=== PATIENT | female | born 1955 | race Caucasian/White ===

== ENCOUNTER → 2016-09-28 | Outpatient (CLI) | payer BC ==
[2016-09-28 10:00] LABS: Appearance,Urine Cloudy (Clear); Bacteria,Urine Moderate /hpf; Bilirubin,Urine Negative (Negative); Glucose,Urine (UA) Negative (Negative); Ketones,Urine Negative (Negative); Leukocyte Esterase,Urine Moderate (Negative); Mucus,Urine Few /hpf; Nitrite,Urine Negative (Negative); Particle Count 11865; Protein,Urine 1+ (Negative); RBC,Urine 3 /hpf (0-5); Specific Gravity,Urine 1.016 (1.001-1.035); Squamous Epithelial Cell,Urine 23 /hpf (0-4); UA Billing (MACRO vs. MICRO) MICRO; WBC,Urine 8 /hpf (0-5)
[2016-09-28 10:03] LABS: CH 28.7; CHCM 31.1; HCT 49.2 % (34.0-46.0); HDW 3.16; Hypochromasia Moderate; MCH 28.3 pg (25.0-35.0); MCHC 30.5 g/dL (31.0-37.0); MCV 92.7 fL (80.0-100.0); Mean Platelet Volume 7.4; RBC 5.31 m/uL (3.80-5.40); RDW 15.7 % (11.5-15.5); WBC 10.1 k/uL (3.8-10.6)
[2016-09-28 12:33] LABS: Blood Urea Nitrogen 18 mg/dL (7-17); Calcium 8.8 mg/dL (8.4-10.2); Chloride 97 mmol/L (98-107); Glucose 103 mg/dL (74-99); Iron 80 ug/dL (37-170); Magnesium 1.9 mg/dL (1.6-2.3); Non-African American GFR(MDRD) 56 (>60 ml/min/1.73 sqM); Phosphorous 4.2 mg/dL (2.5-4.5); Potassium 5.1 mmol/L (3.5-5.1); Sodium 145 mmol/L (137-145); Uric Acid 5.1 mg/dL (3.7-7.4)
[2016-09-28 12:42] LABS: % Iron Saturation 27.1 % (20-50); Total Iron Binding Capacity 295 ug/dL (265-497)
[2016-09-28 12:53] LABS: Anion Gap 11 mmol/L; Carbon Dioxide 37 mmol/L (22-30)
== END | disposition home or self-care (01) ==
LOC: LABWHC1 09:23
PROVIDERS: ATTEND Nurse Practitioner Family
DX: N18.3 Chronic kidney disease, stage 3 (moderate) (principal); D50.9 Iron deficiency anemia, unspecified; N25.81 Secondary hyperparathyroidism of renal origin; D64.9 Anemia, unspecified; E83.39 Other disorders of phosphorus metabolism; M10.9 Gout, unspecified; N39.0 Urinary tract infection, site not specified
CPT/HCPCS: 36415; 80048; 81001; 82043; 82306; 82728; 83540; 83550; 83735; 83970; 84100; 84550; 85027

== ENCOUNTER → 2016-11-23 | Outpatient (CLI) | payer BC ==
--- NOTE | 2016-11-23 15:30 | BD ---
EXAMINATION TYPE: MG DEXA axial skeleton. DATE OF EXAM: 11/23/2016 1:24 PM COMPARISON: August 21, 2014 DEXA bone scan. CLINICAL HISTORY: Postmenopausal female without HRT Height: 5 FT 1 IN Weight: 327 FRAX RISK QUESTIONS: Alcohol (3 or more units per day): SELDOM Family History (Parent hip fracture): NO Glucocorticoids (More than 3mos): NO (Ex: prednisone, prednisolone, methylprednisolone, dexamethasone, and hydrocortisone). History of Fracture in Adulthood: YES Secondary Osteoporosis: 1. Type 1 Diabetes: NO 2. Hyperthyroidism: NO 3. Menopause before 45: NO 4. Malnutrition: NO 5. Chronic liver disease: NO Rheumatoid Arthritis: NO Current Tobacco Use: NO RISK FACTORS HISTORY OF: Surgery to Spine/Hip(right/left)/Wrist (right/left): LT HIP REPLACED When: 2015 Other Fractures since Age 48: RT FOOT When: 2017 Smoke tobacco: JUST STOPPED ONE MONTH AGO HAD SMOKED FOR 30 YEARS Drink Alcohol: SELDOM Postmenopausal woman: AGE 46 MEDICATIONS: Thyroid Medications: Which medication: SYNTHROID How Lon YEARS Osteoporosis Medications: Which medication: How Long: Additional Medications: SYNTHROID, SPIRONLACTONE,FERROUS SULFATE,VIT D2, CALCITRIOL, HYDROCODONE,ACET AMINOPH,AMLODIPINE BESYLATE Additional History: EXAM MEASUREMENTS: Bone mineral densitometry was performed using the [employer] System. Bone mineral density as measured about the Lumbar spine is: ----- L1-L4(G/cm2): 1.058 T Score Values are as follows: ----- L2: -0.3 ----- L3: -1.3 ----- L4: -1.0 ----- L1-L4: -1.0 Bone mineral density has: Decreased -6.4% since study of: 2013 Bone mineral density about the R hip (g/cm2): 0.782 T Score values are as follows: -----R Neck: -1.8 -----R Intertrochanter: 0.713 Bone mineral density has: Decreased -9.5% since study of: 2013 IMPRESSION: Osteopenia (T Score between -2.5 and -1 as noted by T score values in the right hip and low back lonny ins present. Bone density is decreased from prior. There remains slightly increased risk of fracture and the patient may be considered for treatment. Re-Screen 1-2 years. NOTE: T-SCORE=SD OF THE YOUNG ADULT MEAN.
--- NOTE | 2016-11-24 08:29 | MM ---
Reason for exam: screening (asymptomatic). Last mammogram was performed 1 year ago. History: Patient is postmenopausal. Family history of breast cancer in maternal grandmother at age 85. Physical Findings: A clinical breast exam by your physician is recommended on an annual basis and results should be correlated with mammographic findings. MG Screening Mammo w CAD Bilateral CC and MLO view(s) were taken. Prior study comparison: November 09, 2015, right breast MG 3d work up w/cad RT. November 01, 2015, bilateral MG screening mammo w CAD. The breast tissue is almost entirely fat. No significant changes when compared with prior studies. ASSESSMENT: Benign, BI-RAD 2 RECOMMENDATION: Routine screening mammogram of both breasts in 1 year.
== END | disposition home or self-care (01) ==
LOC: RADMAMWWP 12:32
PROVIDERS: ATTEND Family Medicine
DX: Z12.31 Encounter for screening mammogram for malignant neoplasm of breast (principal); Z78.0 Asymptomatic menopausal state; M85.89 Other specified disorders of bone density and structure, multiple sites
CPT/HCPCS: 77080; G0202

== ENCOUNTER → 2017-03-23 | Outpatient (CLI) | payer MEDICARE ==
[2017-03-23 10:09] LABS: CH 30.2; CHCM 33.5; HCT 39.3 % (34.0-46.0); HDW 2.88; HGB 13.1 gm/dL (11.4-16.0); MCH 30.1 pg (25.0-35.0); MCHC 33.2 g/dL (31.0-37.0); MCV 90.6 fL (80.0-100.0); Mean Platelet Volume 8.1; RBC 4.33 m/uL (3.80-5.40); RDW 15.1 % (11.5-15.5); WBC 7.5 k/uL (3.8-10.6)
[2017-03-23 10:28] LABS: Appearance,Urine Cloudy (Clear); Bilirubin,Urine Negative (Negative); Glucose,Urine (UA) Negative (Negative); Ketones,Urine Negative (Negative); Leukocyte Esterase,Urine Negative (Negative); Mucus,Urine Rare /hpf; Nitrite,Urine Negative (Negative); PH, Urine 5.5 (5.0-8.0); Particle Count 8023; Protein,Urine Trace (Negative); RBC,Urine 1 /hpf (0-5); Squamous Epithelial Cell,Urine 30 /hpf (0-4); UA Billing (MACRO vs. MICRO) MICRO; Urobilinogen,Urine <2.0 mg/dL (<2.0); WBC,Urine 1 /hpf (0-5)
[2017-03-23 11:06] LABS: Calcium 9.5 mg/dL (8.4-10.2); Magnesium 2.1 mg/dL (1.6-2.3); Phosphorous 4.5 mg/dL (2.5-4.5); Potassium 4.9 mmol/L (3.5-5.1); Uric Acid 6.9 mg/dL (3.7-7.4)
[2017-03-23 11:15] LABS: % Iron Saturation 28.8 % (20-50)
[2017-03-23 17:02] LABS: Urine Creatinine 284.4 mg/dL
== END | disposition home or self-care (01) ==
LOC: LABWHC1 09:42
PROVIDERS: ATTEND Nurse Practitioner Family
DX: M10.9 Gout, unspecified (principal); N39.0 Urinary tract infection, site not specified; N18.3 Chronic kidney disease, stage 3 (moderate); R80.9 Proteinuria, unspecified; N25.81 Secondary hyperparathyroidism of renal origin; D50.9 Iron deficiency anemia, unspecified
CPT/HCPCS: 36415; 80048; 81001; 82043; 82306; 82570; 82728; 83540; 83550; 83735; 83970; 84100; 84550; 85027

== ENCOUNTER → 2017-04-11 | Outpatient (CLI) | payer MEDICARE ==
--- NOTE | 2017-04-11 11:53 | US ---
EXAMINATION TYPE: US kidneys/renal and bladder DATE OF EXAM: 04/11/2017 COMPARISON: 01/06/2015 CLINICAL HISTORY: 61-year-old female N18.3 Chronic Kidney Disease. TECHNIQUE: Multiple sonographic images of the kidneys and bladder were obtained. FINDINGS: KILN CLEANER NOTES: Gross morbid obesity, study very limited. Right Kidney: 12.7 x 5.8 x 5.8 cm. There is limited visualization of the right kidney. Possible lesi on measuring 4.3 x 4.5 x 4.1 cm. Previously at the lower pole, a 2.4 x 2.5 cm lesion was seen. No ev ident hydronephrosis. By ultrasound, the left renal fossa appears clear. Partial distention of the bladder limits its evaluation. Left Kidney: Left nephrectomy IMPRESSION: 1. Possible enlarging lesion or cyst within the right kidney measuring 4.5 cm versus 2.5 cm, previous ly. There are technical limitations of the exam causing suboptimal visualization of the kidney. Consi dawood CT or MRI with renal mass protocol to further evaluate. 2. No hydronephrosis on the right. 3. By ultrasound, the left renal fossa appears clear.
== END | disposition home or self-care (01) ==
LOC: RADUSWWP 09:39
PROVIDERS: ATTEND Internal Medicine Nephrology
DX: N18.3 Chronic kidney disease, stage 3 (moderate) (principal)
CPT/HCPCS: 76770

== ENCOUNTER → 2017-04-20 | Outpatient (CLI) | payer MEDICARE ==
--- NOTE | 2017-04-20 09:59 | CT ---
EXAMINATION TYPE: CT abdomen pelvis wo con DATE OF EXAM: 04/20/2017 COMPARISON: NONE INDICATION: Renal Mass of unknown nature DLP: 1085 mGycm, Automated exposure control for dose reduction was used. CONTRAST: 0 mL of Omnipaque 300. Study performed without Oral Contrast TECHNIQUE: Axial images were obtained from above the diaphragm to the pubic rami in the axial plane a t 5 mm thick sections. Reconstructed images are reviewed on the computer in the coronal plane. FINDINGS: Limited CT sections are obtained the lung bases. The lung bases are clear. CT ABDOMEN: Liver: Normal Spleen: Normal Pancreas: Normal Adrenal glands: The adrenal glands are normal. Gallbladder: Gallstones are present. Kidneys: Left kidney is surgically absent. Noncontrast imaging through the right kidney appears ravi l without masses cysts or hydronephrosis. Some mild rotation is evident. Right renal collecting syste m is nondilated. The ureter follows a somewhat midline course towards the urinary bladder. No suspici ous renal stones are identified. No hydroureter is evident. Aorta: Vascular calcification is within the aorta. Inferior vena cava: Normal. CT PELVIS: Lower pelvis is limited due to beam hardening artifact from left hip prosthesis. Loops of bowel within the abdomen and pelvis are normal. Appendix: Not identified. Urinary bladder: Normal. Genitourinary structures: Uterus and adnexa are within the normal position. Calcified lower uterine s egment calcified fibroid is likely present. Osseous structures: No suspicious lytic or sclerotic lesions. Sacroiliac joint degenerative changes a re present. Degenerative disc changes are present L5-S1. Spondylolysis of L5 is evident. IMPRESSIONS: 1. No suspicious renal mass or ureteral calcification is evident. 2. Spondylolysis L5. 3. Cholelithiasis.
== END ==
LOC: RADCTMAIN 08:21
PROVIDERS: ATTEND Internal Medicine Nephrology
DX: K80.20 Calculus of gallbladder without cholecystitis without obstruction (principal)
CPT/HCPCS: 74176

== ENCOUNTER → 2017-11-22 | Outpatient (CLI) | payer MEDICARE ==
[2017-11-22 09:18] LABS: HCT 38.8 % (34.0-46.0); HGB 12.7 gm/dL (11.4-16.0); MCH 28.5 pg (25.0-35.0); MCHC 32.6 g/dL (31.0-37.0); MCV 87.5 fL (80.0-100.0); Mean Platelet Volume 7.4; Platelet Count 302 k/uL (150-450); RBC 4.44 m/uL (3.80-5.40); RDW 14.2 % (11.5-15.5); WBC 9.7 k/uL (3.8-10.6)
[2017-11-22 09:21] LABS: Appearance,Urine Cloudy (Clear); Bacteria,Urine Occasional /hpf; Bilirubin,Urine Negative (Negative); Blood,Urine Negative (Negative); Color,Urine Yellow; Glucose,Urine (UA) Negative (Negative); Ketones,Urine Negative (Negative); Leukocyte Esterase,Urine Negative (Negative); Mucus,Urine Rare /hpf; Nitrite,Urine Negative (Negative); PH, Urine 5.5 (5.0-8.0); Protein,Urine Negative (Negative); RBC,Urine 1 /hpf (0-5); Specific Gravity,Urine 1.019 (1.001-1.035); Squamous Epithelial Cell,Urine 13 /hpf (0-4); Urobilinogen,Urine <2.0 mg/dL (<2.0); WBC,Urine 3 /hpf (0-5)
[2017-11-22 09:35] LABS: Calcium 9.5 mg/dL (8.4-10.2); Magnesium 1.9 mg/dL (1.6-2.3); Phosphorus 4.7 mg/dL (2.5-4.5); Potassium 4.9 mmol/L (3.5-5.1); Total Bilirubin 0.4 mg/dL (0.2-1.3); Total Protein 6.6 g/dL (6.3-8.2); Uric Acid 5.9 mg/dL (3.7-7.4)
[2017-11-22 09:47] LABS: T4, Free (Free Thyroxine) 1.23 ng/dL (0.78-2.19)
[2017-11-22 16:55] LABS: Parathyroid Hormone Intact 94.4 pg/mL (14.0-72.0)
[2017-11-22 17:38] LABS: Iron Saturation 22.01 (12.00-45.00)
[2017-11-22 17:47] LABS: Vitamin D 25 Hydroxy 35.6 ng/mL (30.0-100.0)
== END | disposition home or self-care (01) ==
LOC: LABWHC1 08:08
PROVIDERS: ATTEND Nurse Practitioner Family
DX: N39.0 Urinary tract infection, site not specified (principal); N18.3 Chronic kidney disease, stage 3 (moderate); D50.9 Iron deficiency anemia, unspecified; N25.81 Secondary hyperparathyroidism of renal origin; M10.9 Gout, unspecified; R80.9 Proteinuria, unspecified
CPT/HCPCS: 36415; 80053; 80061; 81001; 82043; 82306; 82570; 82728; 83036; 83540; 83550; 83735; 83970; 84100; 84439; 84443; 84550; 85027

== ENCOUNTER → 2017-12-06 | Outpatient (CLI) | payer MEDICARE ==
--- NOTE | 2017-12-06 13:43 | US ---
EXAMINATION TYPE: US kidneys/renal and bladder DATE OF EXAM: 12/06/2017 COMPARISON: Ultrasound 04/11/[address] 04/20/2017 CLINICAL HISTORY: 62-year-old female CKD stage 3 N18.3. LEFT kidney surgically absent Technique: Multiple sonographic images of the kidneys and bladder are obtained. FINDINGS: Right Kidney: 14.1 x 5.7 x 7.5 cm without hydronephrosis. There is a partially exophytic round hypoe choic lesion with internal vascularity measuring 3.8 x 3.7 cm in the mid right kidney. On ultrasound of 04/11/2017, this measured 4.5 cm and on 01/06/2015, it measured 2.5 cm. Left Kidney: Surgically absent Bladder: No gross abnormality of the bladder. Bilateral Jets seen: right jet seen Incidental echogenic appearance to the liver suggests fatty infiltration. IMPRESSION: 1. Lesion measuring 3.8 cm in the right kidney seems to have relatively indolent behavior. However, i ts solid appearance on the current exam and associated vascularity makes a neoplasm such as RCC diffi cult to entirely exclude. The patient's 04/20/2017 CT is reviewed and we note limitations due to nonco ntrast technique. A right kidney lesion is confirmed on that study measuring approximately 4.3 cm. F or a exhibit display representative image, refer to series [address] Recommend kidney MRI with contrast for more definitive soft tissue characterization. 2. Left renal fossa remains clear. 3. Hepatic steatosis.
== END | disposition home or self-care (01) ==
LOC: RADUSWWP 10:04
PROVIDERS: ATTEND Internal Medicine Nephrology
DX: N28.9 Disorder of kidney and ureter, unspecified (principal); N18.3 Chronic kidney disease, stage 3 (moderate)
CPT/HCPCS: 76770

== ENCOUNTER → 2017-12-26 | Outpatient (CLI) | payer MEDICARE ==
--- NOTE | 2017-12-28 10:59 | MM ---
Reason for exam: screening (asymptomatic). Last mammogram was performed 1 year and 1 month ago. History: Patient is postmenopausal. Family history of breast cancer in maternal grandmother at age 85. Physical Findings: A clinical breast exam by your physician is recommended on an annual basis and results should be correlated with mammographic findings. MG 3D Screening Mammo W/Cad Bilateral CC and MLO view(s) were taken. Prior study comparison: November 23, 2016, bilateral MG screening mammo w CAD. November 09, 2015, right breast MG 3d work up w/cad RT. There are scattered fibroglandular densities. There is chronic nodularity in the right breast. No significant changes when compared with prior studies. ASSESSMENT: Benign, BI-RAD 2 RECOMMENDATION: Routine screening mammogram of both breasts in 1 year.
== END | disposition home or self-care (01) ==
LOC: RADMAMWWP 06:58
PROVIDERS: ATTEND Family Medicine
DX: Z12.31 Encounter for screening mammogram for malignant neoplasm of breast (principal); Z80.3 Family history of malignant neoplasm of breast
CPT/HCPCS: 77063; 77067

== ENCOUNTER → 2018-06-18 | Outpatient (CLI) | payer MEDICARE | LOC: LABWHC1 15:23 | PROVIDERS: ATTEND Urology | DX: Z01.812 Encounter for preprocedural laboratory examination (principal); N28.89 Other specified disorders of kidney and ureter | CPT/HCPCS: 36415; 82565 ==

== ENCOUNTER → 2018-06-19 | Outpatient (CLI) | payer MEDICARE | LOC: RADMRIMAIN 07:17 | PROVIDERS: ATTEND Urology | DX: Z53.9 Procedure and treatment not carried out, unspecified reason (principal) ==

== ENCOUNTER → 2019-03-27 | Outpatient (CLI) | payer MEDICARE ==
--- NOTE | 2019-03-27 13:15 | MM ---
Reason for exam: screening (asymptomatic). Last mammogram was performed 1 year and 3 months ago. History: Patient is postmenopausal and has history of other cancer at age 63. Family history of breast cancer in maternal grandmother at age 85. Physical Findings: A clinical breast exam by your physician is recommended on an annual basis and results should be correlated with mammographic findings. MG 3D Screening Mammo W/Cad Bilateral CC and MLO view(s) were taken. XCCL view(s) were taken of the right breast. Prior study comparison: December 26, 2017, bilateral MG 3d screening mammo w/cad. November 23, 2016, bilateral MG screening mammo w CAD. The breast tissue is heterogeneously dense. This may lower the sensitivity of mammography. There are benign appearing oval circumscribed right breast masses (two) that are stable. No suspicious abnormality. No significant changes when compared with prior studies. ASSESSMENT: Benign, BI-RAD 2 RECOMMENDATION: Routine screening mammogram of both breasts in 1 year.
== END | disposition home or self-care (01) ==
LOC: RADMAMWWP 08:10
PROVIDERS: ATTEND Family Medicine
DX: Z12.31 Encounter for screening mammogram for malignant neoplasm of breast (principal); Z80.3 Family history of malignant neoplasm of breast
CPT/HCPCS: 77063; 77067

== ENCOUNTER → 2020-06-15 | Outpatient (CLI) | payer MEDICARE ==
--- NOTE | 2020-06-16 11:46 | MM ---
Reason for exam: screening (asymptomatic). Last mammogram was performed 1 year and 3 months ago. History: Patient is postmenopausal and has history of other cancer at age 63. Family history of breast cancer in maternal grandmother at age 85. Physical Findings: A clinical breast exam by your physician is recommended on an annual basis and results should be correlated with mammographic findings. MG 3D Screening Mammo W/Cad Bilateral CC, MLO, and XCCL view(s) were taken. Prior study comparison: March 27, 2019, bilateral MG 3d screening mammo w/cad. December 26, 2017, bilateral MG 3d screening mammo w/cad. There are scattered fibroglandular densities. There is chronic nodularity in the right breast. No significant changes when compared with prior studies. ASSESSMENT: Benign, BI-RAD 2 RECOMMENDATION: Routine screening mammogram of both breasts in 1 year.
== END | disposition home or self-care (01) ==
LOC: RADMAMWWP 10:48
PROVIDERS: ATTEND Family Medicine
DX: Z12.31 Encounter for screening mammogram for malignant neoplasm of breast (principal); Z80.3 Family history of malignant neoplasm of breast
CPT/HCPCS: 77063; 77067

== ENCOUNTER → 2021-08-05 | Outpatient (CLI) | payer MEDICARE ==
--- NOTE | 2021-08-08 11:32 | MM ---
Reason for exam: screening (asymptomatic). Last mammogram was performed 1 year and 2 months ago. History: Patient is postmenopausal and has history of other cancer at age 63. Family history of breast cancer in maternal grandmother at age 85. Physical Findings: A clinical breast exam by your physician is recommended on an annual basis and results should be correlated with mammographic findings. MG 3D Screening Mammo W/Cad Bilateral CC and MLO view(s) were taken. XCCL view(s) were taken of the right breast. Prior study comparison: June 15, 2020, bilateral MG 3d screening mammo w/cad. March 27, 2019, bilateral MG 3d screening mammo w/cad. There are scattered fibroglandular densities. There is no discrete abnormality. No significant changes when compared with prior studies. ASSESSMENT: Negative, BI-RAD 1 RECOMMENDATION: Routine screening mammogram of both breasts in 1 year.
== END | disposition home or self-care (01) ==
LOC: RADMAMWWP 09:12
PROVIDERS: ATTEND Family Medicine
DX: Z12.31 Encounter for screening mammogram for malignant neoplasm of breast (principal); Z80.3 Family history of malignant neoplasm of breast; Z78.0 Asymptomatic menopausal state
CPT/HCPCS: 77063; 77067

== ENCOUNTER → 2022-08-09 | Outpatient (CLI) | payer MEDICARE ==
--- NOTE | 2022-08-10 08:55 | MM ---
Reason for Exam: Screening (asymptomatic). Last screening mammogram was performed 12 month(s) ago. Patient History: Menarche at age 9. First Full-Term at age 25. Postmenopausal. Other cancer, age 63. Maternal grandmother had breast cancer, age 85. Maternal half sister had breast cancer under age 50. Risk Values: Miroslava 5 year model risk: 2.1%. NCI Lifetime model risk: 6.7%. Prior Study Comparison: 03/27/2019 Bilateral Screening Mammogram, [facility]. 06/15/2020 Bilateral Screening Mammogram, [facility]. 08/05/2021 Bilateral Screening Mammogram, [facility]. Tissue Density: There are scattered fibroglandular densities. Findings: Analyzed By CAD. There is no suspicious group of microcalcifications or new suspicious mass in either breast. Overall Assessment: Negative, BI-RAD 1 Management: Screening Mammogram of both breasts in 1 year. A clinical breast exam by your physician is recommended on an annual basis and results should be correlated with mammographic findings. Electronically signed and approved by: David Reynolds M.D. Radiologis
== END | disposition home or self-care (01) ==
LOC: RADMAMWWP 08:15
PROVIDERS: ATTEND Family Medicine
DX: Z12.31 Encounter for screening mammogram for malignant neoplasm of breast (principal); Z80.3 Family history of malignant neoplasm of breast; Z78.0 Asymptomatic menopausal state
CPT/HCPCS: 77063; 77067

== ENCOUNTER → 2022-09-12 | Outpatient (CLI) | payer MEDICARE ==
--- NOTE | 2022-09-12 16:07 | US ---
EXAMINATION TYPE: US kidneys/renal and bladder DATE OF EXAM: 09/12/2022 COMPARISON: 12/06/2017 CLINICAL HISTORY: 66-year-old female N18.32 CHRONIC KIDNEY DISEASE. CKD Patient had left kidney remov ed 20 years ago for mass was benign. Had mass on right kidney removed x 2 years ago was Cancer. TECHNIQUE: Carotid duplex ultrasound examination. In direct Doppler criteria was utilized. FINDINGS: EXAM MEASUREMENTS: Right Kidney: 12.3 x 6.3 x 4.6 cm. No hydronephrosis or sonographically apparent mass. Left Kidney: Surgically absent Partial distention of the bladder limits its evaluation. Bilateral Jets seen: no IMPRESSION: 1. No hydronephrosis or discrete mass appreciated within the right kidney by ultrasound. 2. The left kidney appears surgically absent. 3. Limited, nondistended bladder.
== END | disposition home or self-care (01) ==
LOC: RADUSWWP 12:52
PROVIDERS: ATTEND Internal Medicine Nephrology
DX: N18.32 Chronic kidney disease, stage 3b (principal)
CPT/HCPCS: 76770

== ENCOUNTER → 2023-03-16 | Outpatient (CLI) | payer MEDICARE ==
--- NOTE | 2023-03-16 19:29 | CT ---
EXAMINATION TYPE: CT chest wo con DATE OF EXAM: 03/16/2023 COMPARISON: 10/19/2022 HISTORY: hx of thoracic aneurysm CT DLP: 611.80 mGycm, Automated exposure control for dose reduction was used. CONTRAST: Performed injected with 0 mL of Isovue 300. TECHNIQUE: Axial images were obtained at 5 mm thick sections. Reconstructed images are reviewed on [employer] computer in the coronal plane. FINDINGS: Portion of the thyroid visualized is normal. No suspicious lung nodules or focal infiltrates are present. No enlarged mediastinal or hilar adenopathy is evident. The ascending aorta diameter at the level o f the main pulmonary artery is 4.3 cm. The main pulmonary artery diameter at the bifurcation is 3.[address] sections are obtained through the upper abdomen. Abdomen is essentially unremarkable. IMPRESSIONS: 1. Ascending thoracic aortic aneurysm measuring 4.3 cm. This appears stable from comparison.
== END | disposition home or self-care (01) ==
LOC: RADCTMAIN 15:10
PROVIDERS: ATTEND Family Medicine
DX: I71.21 Aneurysm of the ascending aorta, without rupture (principal)
CPT/HCPCS: 71250

== ENCOUNTER → 2023-07-16 | Outpatient (CLI) | payer MEDICARE | END | disposition home or self-care (01) | LOC: LABPAT 09:58 | PROVIDERS: ATTEND Otolaryngology | DX: Z01.818 Encounter for other preprocedural examination (principal) | CPT/HCPCS: 93005 ==

== ENCOUNTER 2023-07-19 08:13 | Day surgery (SDC) | payer MEDICARE ==
[~2023-07-19 08:13] MED LIST: DEXAMETHASONE SOD PHOSPHATE 4 MG/ML 1 ML VIAL IV ONE; FAMOTIDINE 20 MG/2 ML VIAL IV PRN; LACTATED RINGERS 1,000 ML IV SCH; LIDOCAINE 1% (10MG/ML) FOR IV START INTRADERMA PRN; ONDANSETRON 4 MG/2 ML VIAL IVP ONE; Pre Op ABX Message 1 EACH MISC MISCELLANE ONE; droPERidol 5 MG/2 ML VIAL IVP ONE; fentaNYL (PF) 50 MCG/ML 2 ML AMP IV PRN
[2023-07-19] MEDS ORDERED: ALBUTEROL NEBULIZED 2.5 MG/3 ML INHALATION ONE (08:58)
[2023-07-19] MEDS ORDERED: SUCCINYLCHOLINE CHLORIDE 200 MG/10 ML VIAL IV ONE (09:33)
[2023-07-19] MEDS ORDERED: SUGAMMADEX SODIUM 200 MG/2 ML SDV IV ONE (09:33)
[2023-07-19] MEDS ORDERED: MIDAZOLAM 2 MG/2 ML VIAL ONE (09:33)
[2023-07-19] MEDS ORDERED: ROCURONIUM 10 MG/ML (5 ML VIAL) IV ONE (09:33)
[2023-07-19] MEDS ORDERED: fentaNYL (PF) 50 MCG/ML 2 ML AMP ONE (09:33)
[2023-07-19] MEDS ORDERED: PROPOFOL 10 MG/ML 20 ML VIAL IV ONE (09:33)
[2023-07-19] MEDS ORDERED: DEXAMETHASONE SOD PHOSPHATE 10 MG/ML 1 ML VIAL ONE (09:33)
[2023-07-19] MEDS ORDERED: GLYCOPYRROLATE 0.2 MG/ML 2 ML VIAL ONE (09:33)
[2023-07-19] MEDS ORDERED: LIDOCAINE 1% INJ 10MG/ML (20 ML MDV) ONE (09:33)
--- NOTE | 2023-07-19 10:39 | P.OP ---
Date of Procedure: 07/19/23 Preoperative Diagnosis: Left vocal cord polyp Postoperative Diagnosis: Same Procedure(s) Performed: Direct microscopic laryngoscopy with removal of left vocal cord polyp Anesthesia: GETA Surgeon: Darryl Torres Estimated Blood Loss (ml): 0 Pathology: other (Left vocal cord polyp) Condition: stable Disposition: PACU Indications for Procedure: Patient has severe hoarseness and was found have bilateral vocal cord polyps. Surgical removal for both polyps was recommended due to their severity. It was recommended that on one polyp be removed at a time therefore 2 surgeries were planned. All risks, benefits and alternative therapies were discussed in detail. Consent was obtained and all questions were answered. Operative Findings: Large left vocal cord polyp Description of Procedure: Patient was taken to the operative room placed in the supine position. A general inhalation anesthetic was administered the patient by mask and subsequently intubated with a cuffed endotracheal tube by the department of anesthesia with a functioning IV line in place. Patient was monitored throughout the entire case by the department of anesthesia. A #5 NEWS DIRECTOR tube was placed by the department of anesthesia and a tooth guard was placed. A Jako laryngoscope was placed into the patient's mouth with care to avoid any trauma to the lips teeth gums and tongue. We did an entire inspection of the hypopharynx and laryngeal region including base of tongue epiglottis true and false vocal cords postcricoid space performed sinus etc. We placed the scope on a Lewy magnified and visualized the vocal cords with use of a Zeiss microscope. With use of a micro forcep both up and straight we remove this polyp completely on the left side. We did not cause any damage to the lamina propria and a flap was developed inferiorly to cover the superior part of the vocal cord. mucosal flap was developed and excellent results were obtained. Patient was taken to postanesthesia recovery in excellent condition will follow up in one week patient has 1 week of total voice rest.
[2023-07-19 10:54] VITALS: TEMP 97.2
[2023-07-19 11:20] VITALS: RESP 16
[2023-07-19 11:46] VITALS: BP 118/65; PULSE 82
== END 2023-07-19 12:03 | disposition home or self-care (01) ==
LOC: OR 08:13
PROVIDERS: ATTEND Otolaryngology
DX: J38.1 Polyp of vocal cord and larynx (principal); I10 Essential (primary) hypertension; J44.9 Chronic obstructive pulmonary disease, unspecified; G47.33 Obstructive sleep apnea (adult) (pediatric); Z79.899 Other long term (current) drug therapy; Z87.891 Personal history of nicotine dependence; Z98.890 Other specified postprocedural states
CPT/HCPCS: 31541; J2250; J0330; J1100 ×2; J2405; J2001; J3010; J3490; J2704

== ENCOUNTER → 2023-08-08 | Outpatient (CLI) | payer MEDICARE ==
[2023-08-08 09:01] LABS: African American GFR (CKD) 67 (>60 ml/min/1.73 sqM); Blood Urea Nitrogen 17 mg/dL (7-17); Non-African American GFR(CKD) 58 (>60 ml/min/1.73 sqM)
--- NOTE | 2023-08-08 10:25 | CT ---
EXAMINATION TYPE: CT angio chest DATE OF EXAM: 08/08/2023 COMPARISON: Most recent prior CT March 16, 2023 HISTORY: Thoracic aortic aneurysm CT DLP: 263 mGycm. Automated Exposure Control for Dose Reduction was Utilized. CONTRAST: CTA scan of the thorax is performed without and with IV Contrast, patient injected with 80 mL of Isov ue 370, aneurysm protocol. MIP Images are created on CT scanner and reviewed. 3D reconstructed imag es are created on an independent workstation and reviewed. FINDINGS: LUNGS: The lungs are grossly clear, there is no concerning parenchymal mass or nodule identified. T here is no pleural effusion or pneumothorax seen. The tracheobronchial tree is patent. MEDIASTINUM: Noncontrast images show no suspicious hyperdense material to suggest intramural hematoma . Postcontrast images show less than ideal opacification of vascular structures. Prominence of the pu lmonary arteries suggests underlying pulmonary hypertension. Ascending aorta measures up to 4.0 cm in diameter axial image 55. Normal 3 vessel origins from the aortic arch. No aneurysm in the descending aorta. Trace pericardial effusion. No cardiomegaly. No greater than 1 cm hilar mediastinal lymph nod es. OTHER: Upper abdomen only partially imaged. Multilevel spurring in the spine is present. IMPRESSION: Stable ascending aortic aneurysm up to 4.0 cm on current study.
== END | disposition home or self-care (01) ==
LOC: RADCTMAIN 08:26
PROVIDERS: ATTEND Family Medicine
DX: I71.21 Aneurysm of the ascending aorta, without rupture (principal)
CPT/HCPCS: 82565; 84520; 71275; 36415; Q9967

== ENCOUNTER → 2023-08-24 | Outpatient (CLI) | payer MEDICARE ==
--- NOTE | 2023-08-29 11:50 | MM ---
Reason for Exam: Screening (asymptomatic). Last screening mammogram was performed 12 month(s) ago. Patient History: Menarche at age 9. First Full-Term at age 25. Postmenopausal. Other cancer, age 63. Maternal grandmother had breast cancer, age 85. Maternal half sister had breast cancer under age 50. Risk Values: Miroslava 5 year model risk: 2.1%. NCI Lifetime model risk: 6.4%. Prior Study Comparison: 06/15/2020 Bilateral Screening Mammogram, [facility]. 08/05/2021 Bilateral Screening Mammogram, [facility]. 08/09/2022 Bilateral MG 3D screening mammo w/cad, [facility]. Tissue Density: There are scattered fibroglandular densities. Findings: Analyzed By CAD. There is no suspicious group of microcalcifications or new suspicious mass. Overall Assessment: Negative, BI-RAD 1 Management: Screening Mammogram of both breasts in [address] [facility] will attempt to contact patient to return for supplemental views and ultrasound if indicated. Patient should continue monthly self-breast exams. A clinical breast exam by your physician is recommended on an annual basis. This exam should not preclude additional follow-up of suspicious palpable abnormalities. Note on Miroslava scores and lifetime risk: 1. A Mirosalva score greater than 3% is considered moderate risk. If this is the case, consider specialist referral to assess eligibility for a risk reducing agent. 2. If overall lifetime risk for the development of breast cancer is 20% or higher, the patient may qualify for future screening with alternating mammogram and breast MRI. Electronically signed and approved by: Travis Mejia DO
== END | disposition home or self-care (01) ==
LOC: RADMAMWWP 13:58
PROVIDERS: ATTEND Family Medicine
DX: Z12.31 Encounter for screening mammogram for malignant neoplasm of breast (principal); Z80.3 Family history of malignant neoplasm of breast; Z78.0 Asymptomatic menopausal state
CPT/HCPCS: 77063; 77067

== ENCOUNTER 2023-09-20 12:08 | Day surgery (SDC) | payer MEDICARE ==
[2023-09-14 16:16] VITALS: BMI 58.6
[~2023-09-20 12:08] MED LIST changes: +ONDANSETRON 4 MG/2 ML VIAL IVP PRN; -Pre Op ABX Message 1 EACH MISC MISCELLANE ONE; +ceFAZolin 3 GM in SODIUM CHLORIDE 0.9% 100 ML IVPB PRN; +metroNIDAZOLE-NS PMX 500 MG in SALINE 1 100ML.BAG IVPB PRN
[2023-09-20 12:56] LABS: Basophils # (A) 0.1 k/uL (0-0.2); Basophils % (A) 1 %; Eosinophils # (A) 0.2 k/uL (0-0.7); Eosinophils % (A) 2 %; HCT 40.5 % (34.0-46.0); HGB 13.5 gm/dL (11.4-16.0); Lymphocytes # (A) 2.8 k/uL (1.0-4.8); Lymphocytes % (A) 29 %; MCH 29.3 pg (25.0-35.0); MCHC 33.3 g/dL (31.0-37.0); MCV 87.8 fL (80.0-100.0); Mean Platelet Volume 7.8; Monocytes # (A) 0.6 k/uL (0-1.0); Monocytes % (A) 6 %; Neutrophils # (A) 5.9 k/uL (1.3-7.7); Neutrophils % (A) 61 %; Platelet Count 294 k/uL (150-450); RBC 4.61 m/uL (3.80-5.40); RDW 14.9 % (11.5-15.5); WBC 9.7 k/uL (3.8-10.6)
[2023-09-20 13:03] VITALS: TEMP 97
[2023-09-20] MEDS ORDERED: IPRATROPIUM-ALBUTEROL 3 ML NEB ONE (13:03)
[2023-09-20] MEDS ORDERED: IPRATROPIUM 0.5 MG/2.5 ML NEBU INHALATION ONE (13:05)
[2023-09-20] MEDS ORDERED: SUGAMMADEX SODIUM 200 MG/2 ML SDV IV ONE (13:25)
[2023-09-20] MEDS ORDERED: ROCURONIUM 10 MG/ML (5 ML VIAL) IV ONE (13:25)
[2023-09-20] MEDS ORDERED: fentaNYL (PF) 50 MCG/ML 2 ML AMP ONE (13:25)
[2023-09-20] MEDS ORDERED: PROPOFOL 10 MG/ML 20 ML VIAL IV ONE (13:25)
[2023-09-20] MEDS ORDERED: SUCCINYLCHOLINE CHLORIDE 200 MG/10 ML VIAL IV ONE (13:25)
--- NOTE | 2023-09-20 14:19 | P.OP ---
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 She scheduled today for removal of her right vocal cord polyp. All risks, benefits, and alternative therapies were discussed. Consent was obtained and all questions were answered. Operative Findings: large right vocal cord polyp Description of Procedure: Patient was taken to the operative room placed in the supine position. A general inhalation anesthetic was administered to the patient by mask and subsequently intubated with a #5 HOT STICK WORKER tube. A tooth guard was placed to prevent any trauma to the teeth and a Jako laryngoscope was placed into the patient's mouth with care to avoid any trauma to the lips teeth gums or tongue. Mouth was opened tongue was depressed and the entire [place] and hypopharynx was evaluated including the base of tongue vallecula epiglottis [place] vocal cords postcricoid space piriform sinus lateral pharynx etc. this was placed on suspension on L redundant magnified and visualize the vocal cords we utilized a 400 mm Zeiss microscope for visualization. The patient was found have a very large right vocal cord polyp. We remove this large polyp with a microdebrider. Complete removal was obtained. We took care not to cause any damage to the lamina propria. After the right vocal cord polyp was removed all instrumentation was removed and the patient was taken to postanesthesia recovery in excellent condition. Tolerated this well and a follow-up is scheduled for 1 week she is on one week of voice rest..
[2023-09-20 15:49] VITALS: BP 142/82; PULSE 85; RESP 18
== END 2023-09-20 15:52 | disposition home or self-care (01) ==
LOC: OR 12:08
PROVIDERS: ATTEND Otolaryngology
DX: J38.1 Polyp of vocal cord and larynx (principal); K21.9 Gastro-esophageal reflux disease without esophagitis; I10 Essential (primary) hypertension; J44.9 Chronic obstructive pulmonary disease, unspecified; G47.33 Obstructive sleep apnea (adult) (pediatric); E03.9 Hypothyroidism, unspecified; M19.90 Unspecified osteoarthritis, unspecified site; Z79.899 Other long term (current) drug therapy; Z79.890 Hormone replacement therapy
CPT/HCPCS: 31541; 88305; 85025; J0330; J1100; J0690; J2405; J3010; J3490; J2704; J1836

== ENCOUNTER → 2024-03-13 | Outpatient (CLI) | payer MEDICARE ==
[2024-03-13 15:19] LABS: BUN/Creat Ratio 13.62 Ratio (12.00-20.00); Blood Urea Nitrogen 17.7 mg/dL (9.0-27.0); Calcium 9.1 mg/dL (8.7-10.3); Carbon Dioxide 27.7 mmol/L (21.6-31.8); Chloride 105 mmol/L (96-109); Glucose 102 mg/dL (70-110); Potassium 4.6 mmol/L (3.5-5.5); Sodium 143 mmol/L (135-145)
--- NOTE | 2024-03-13 23:30 | US ---
EXAMINATION TYPE: US Aorta Screening DATE OF EXAM: 03/13/2024 COMPARISON: CT 2017 CLINICAL INDICATION: Female, 68 years old with history of I71.21 ANEURYSM OF THE ASCENDING AORTA, WIT HONIRU RU; TECHNIQUE: Multiple sonographic images of the abdominal aorta are obtained. FINDINGS: EXAM MEASUREMENTS: Abdominal Aorta: Proximal: not seen Mid: 2.5 x 2.6cm Distal: not seen Bifurcation: Right Iliac: not seen Left Iliac: not seen Difficult and limited study due to patient body habitus Visualized portions of mid aorta appear borderline ectatic, prox distal and bifurcation not seen due to overlying bowel gas IMPRESSION: Very limited examination. No obvious aneurysm identified. Significant torsions are obscured by bowel gas. Recommend attention to repeat the examination at later time.
== END | disposition home or self-care (01) ==
LOC: RADUSWWP 07:04
PROVIDERS: ATTEND Surgery
DX: I71.21 Aneurysm of the ascending aorta, without rupture (principal); R14.3 Flatulence
CPT/HCPCS: 76706; 80048

== ENCOUNTER → 2024-03-17 | Outpatient (CLI) | payer MEDICARE ==
--- NOTE | 2024-03-17 15:12 | CT ---
EXAMINATION TYPE: CT angio chest DATE OF EXAM: 03/17/2024 COMPARISON: 08/08/2023 HISTORY: Aneurysm of ascending aorta w/o rupture. CT DLP: 1754.5 mGycm CONTRAST: CTA thoracic aorta with 3-D reconstruction is performed and with IV Contrast, patient injected with 8 0 cc mL of Isovue 370. Contrast CTA of the thoracic aorta was performed from the lung apex through the upper abdomen. 3D re construction imaging obtained at a separate workstation. CT Chest: THORACIC AORTA: Stable 4 cm ascending thoracic aortic aneurysm. Mild atheromatous changes seen. Ther e is no evidence for dissection or periaortic collection. LUNGS: The lungs are clear and free of infiltrate or atelectasis. No pulmonary nodule or mass is det ected. No pleural effusion or CT evidence of interstitial lung disease. MEDIASTINUM: No evidence for mediastinal hematoma. The heart is not enlarged. No evidence for med iastinal mass or adenopathy. HILAR STRUCTURES: No evidence for mass. No hilar adenopathy is appreciated. OTHER: No significant abnormality. IMPRESSION- Stable 4 cm ascending thoracic aortic aneurysm.
== END | disposition home or self-care (01) ==
LOC: RADCTMAIN 14:24
PROVIDERS: ATTEND Surgery
DX: I71.21 Aneurysm of the ascending aorta, without rupture (principal)
CPT/HCPCS: 71275; Q9967

== ENCOUNTER 2024-05-06 10:27 | Day surgery (SDC) | payer MEDICARE ==
[2024-05-01 17:57] VITALS: BMI 58.6
[~2024-05-06 10:27] MED LIST changes: -DEXAMETHASONE SOD PHOSPHATE 4 MG/ML 1 ML VIAL IV ONE; -FAMOTIDINE 20 MG/2 ML VIAL IV PRN; -LACTATED RINGERS 1,000 ML IV SCH; -ONDANSETRON 4 MG/2 ML VIAL IVP ONE; -ONDANSETRON 4 MG/2 ML VIAL IVP PRN; -ceFAZolin 3 GM in SODIUM CHLORIDE 0.9% 100 ML IVPB PRN; -droPERidol 5 MG/2 ML VIAL IVP ONE; -fentaNYL (PF) 50 MCG/ML 2 ML AMP IV PRN; -metroNIDAZOLE-NS PMX 500 MG in SALINE 1 100ML.BAG IVPB PRN
[2024-05-06 11:00] VITALS: TEMP 97.1
[2024-05-06] MEDS: IV FLUID CONTINUATION 1,000 ML IV ONE (11:01)
[2024-05-06] MEDS: LACTATED RINGERS 1,000 ML IV SCH (11:04)
[2024-05-06] MEDS ORDERED: PROPOFOL 10 MG/ML 20 ML VIAL IV ONE (11:25)
--- NOTE | 2024-05-06 11:27 | P.GSHP ---
History of Present Illness H&P Date: 05/06/24 Chief Complaint: Colon cancer screening 68-year-old female here for colonoscopy. Last colonoscopy 10 years ago. No bowel complaints. No family history of colon cancer. Past Medical History Past Medical History: Cancer, COPD, Hypertension, Osteoarthritis (OA), Sleep Apnea/CPAP/BIPAP, Thyroid Disorder Additional Past Medical History / Comment(s): skin cancer. ALLERGIES. 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 bienign polyps on vocal cords. - hoarse. 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 History of Any Multi-Drug Resistant Organisms: None Reported Past Surgical History: Orthopedic Surgery, Tonsillectomy Additional Past Surgical History / Comment(s): LEFT NEPHRECTOMY (BENIGN TUMOR) IN 1989. TOTAL THYROIDECTOMY., left hip replacment. partial rt kidney removed for cancer tumor. colonoscopy Past Anesthesia/Blood Transfusion Reactions: Postoperative Nausea & Vomiting (PONV) Additional Past Anesthesia/Blood Transfusion Reaction / Comment(s): per pt was from the [facility]. no hx blood transfusion Smoking Status: Current every day smoker - Past Family History Daughter(s) Family Medical History: Deep Vein Thrombosis (DVT) Medications and Allergies Home Medications Medication Instructions Recorded Confirmed Type Ergocalciferol [Vitamin D2 50,000 unit PO SA 01/01/15 05/06/24 History (DRISDOL)] Levothyroxine Sodium [Synthroid] 150 mcg PO QAM 01/01/15 05/06/24 History HYDROcodone/APAP 7.5-325MG [[place] 1 tab PO Q6HR PRN 09/19/15 05/06/24 History 7.5-325] amLODIPine BESYLATE [Norvasc] 5 mg PO QAM 09/19/15 05/06/24 History calcitrioL [Rocaltrol] 0.25 mcg PO MOTUWETH 09/19/15 05/06/24 History Umeclidinium Brm/Vilanterol Tr 1 puff INHALATION QAM 11/10/19 05/06/24 History [Anoro Ellipta 62.5-25 Mcg INH] Folic Acid 0.4 mg PO HS 07/13/23 05/06/24 History Omeprazole [PriLOSEC] 20 mg PO AC-SUPPER 05/01/24 05/06/24 History Allergies Allergy/AdvReac Type Severity Reaction Status Date / Time hydromorphone HCl AdvReac Nausea & Verified 05/06/24 10:56 [From Dilaudid] Vomiting,hives Surgical - Exam Vital Signs Temp Pulse Resp BP Pulse Ox 97.1 F L 82 22 160/72 97 05/06/24 10:59 05/06/24 10:59 05/06/24 10:59 05/06/24 10:59 05/06/24 10:59 Physical exam: General: Well-developed, well-nourished HEENT: Normocephalic, sclerae nonicteric Abdomen: Nontender, nondistended Extremities: No edema Neuro: Alert and oriented Assessment and Plan (1) Colon cancer screening Narrative/Plan: Will proceed with colonoscopy at this time Current Visit: Yes Status: Acute Code(s): Z12.11 - ENCOUNTER FOR SCREENING FOR MALIGNANT NEOPLASM OF COLON SNOMED Code(s): 425473871
--- NOTE | 2024-05-06 11:52 | P.PCN ---
Date of Procedure: 05/06/24 Postoperative Diagnosis: PREOPERATIVE DIAGNOSIS: Colon cancer screening POSTOPERATIVE DIAGNOSIS: Multiple colon polyps, right-sided AVM, diverticulosis PROCEDURE: Colonoscopy with snare polypectomy ANESTHESIA: MAC SURGEON: Robby Vivar M.D. SPECIMENS: Polyps ENDOSCOPIC PROCEDURE: The patient was placed on the endoscopy table in the left decubitus position. The Olympus colonoscope was inserted into the anus and passed under direct visualization to the cecum. I could visualize the valve however despite numerous attempts we were unable to pass beyond the valve to see the base of the cecum. What was visualized in the cecum appeared normal. In the ascending colon a small polyp was seen and removed using the snare with cautery technique. In the transverse colon another polyp was identified and removed in a similar fashion. The descending colon appeared normal. In the sigmoid colon there were 3 polyps noted and removed using the snare with cautery technique. In the rectum there was another 3 polyps seen and removed in a similar fashion. The patient had mild scattered diverticulosis. Digital rectal examination was normal. The patient was taken to the recovery room in stable condition per anesthesia guidelines. RECOMMENDATIONS: Await biopsy results. Recommend repeat colonoscopy 2 to 3 years pending pathology findings given the multiple polyps seen today. If patient has evidence of bleeding at some point in the future would ablation of the right sided AVM.
[2024-05-06 12:01] VITALS: RESP 18
[2024-05-06 12:09] VITALS: BP 122/80; PULSE 83
== END 2024-05-06 12:33 | disposition home or self-care (01) ==
LOC: ORWHC2ENDO 10:27
PROVIDERS: ATTEND Surgery
DX: Z12.11 Encounter for screening for malignant neoplasm of colon (principal); D12.2 Benign neoplasm of ascending colon; D12.3 Benign neoplasm of transverse colon; I10 Essential (primary) hypertension; J44.9 Chronic obstructive pulmonary disease, unspecified; K57.30 Diverticulosis of large intestine without perforation or abscess without bleeding; E07.9 Disorder of thyroid, unspecified; G47.33 Obstructive sleep apnea (adult) (pediatric); F17.210 Nicotine dependence, cigarettes, uncomplicated; K62.1 Rectal polyp; I82.409 Acute embolism and thrombosis of unspecified deep veins of unspecified lower extremity; K21.9 Gastro-esophageal reflux disease without esophagitis; M19.90 Unspecified osteoarthritis, unspecified site; Z85.828 Personal history of other malignant neoplasm of skin; Z88.5 Allergy status to narcotic agent; Z90.5 Acquired absence of kidney; Z79.890 Hormone replacement therapy; Z79.899 Other long term (current) drug therapy; Z79.891 Long term (current) use of opiate analgesic; Z79.83 Long term (current) use of bisphosphonates
CPT/HCPCS: 45385; 88305

== ENCOUNTER → 2024-09-18 | Outpatient (CLI) | payer MEDICARE ==
--- NOTE | 2024-09-18 12:38 | MM ---
Reason for Exam: Screening (asymptomatic). Last mammogram was performed 1 year(s) and 1 month(s) ago. Patient History: Menarche at age 9. First Full-Term at age 25. Postmenopausal. Other cancer, age 63. Maternal grandmother had breast cancer, age 85. Maternal half sister had breast cancer under age 50. Risk Values: Miroslava 5 year model risk: 2.1%. NCI Lifetime model risk: 6.1%. Prior Study Comparison: 08/05/2021 Bilateral Screening Mammogram, [facility]. 08/09/2022 Bilateral MG 3D screening mammo w/cad, [facility]. 08/24/2023 Bilateral MG 3D screening mammo w/cad, [facility]. Tissue Density: There are scattered areas of fibroglandular density. Findings: Analyzed By CAD. There is no suspicious group of microcalcifications or new suspicious mass in either breast. Overall Assessment: Negative, BI-RAD 1 Management: Screening Mammogram of both breasts in 1 year. . Patient should continue monthly self-breast exams. A clinical breast exam by your physician is recommended on an annual basis. This exam should not preclude additional follow-up of suspicious palpable abnormalities. Note on Miroslava scores and lifetime risk: 1. A Miroslava score greater than 3% is considered moderate risk. If this is the case, consider specialist referral to assess eligibility for a risk reducing agent. 2. If overall lifetime risk for the development of breast cancer is 20% or higher, the patient may qualify for future screening with alternating mammogram and breast MRI. [facility], , 09/18/2024 12:34 PM. Electronically signed and approved by: Brian Garibay M.D.
== END | disposition home or self-care (01) ==
LOC: RADMAMWWP 11:11
PROVIDERS: ATTEND Family Medicine
DX: Z12.31 Encounter for screening mammogram for malignant neoplasm of breast (principal); Z78.0 Asymptomatic menopausal state; Z80.3 Family history of malignant neoplasm of breast; R92.323 Mammographic fibroglandular density, bilateral breasts
CPT/HCPCS: 77063; 77067

== ENCOUNTER → 2025-03-17 | Outpatient (CLI) | payer MEDICARE ==
[2025-03-17 12:12] LABS: African American GFR (CKD) 60 (>60 ml/min/1.73 sqM); Blood Urea Nitrogen 21 mg/dL (7-17); Non-African American GFR(CKD) 52 (>60 ml/min/1.73 sqM)
--- NOTE | 2025-03-17 15:29 | CT ---
EXAMINATION TYPE: CT chest without contrast CT angio chest DATE OF EXAM: 03/17/2025 12:49 PM COMPARISON: 03/17/2024 CLINICAL INDICATION: Female, 69 years old with history of I71.21 ANEURYSM OF THE ASCENDING AORTA, WIT HOUT RU; Aneurysm of ascending aorta w/o rupture. TECHNIQUE/CONTRAST: CTA scan of the thorax is performed without and with IV Contrast, patient injected with 80 ml mL of I sovue 370, 3-D rotational reconstructions generated on a dedicated independent workstation. CT DLP: 1645.5 mGycm, Automated exposure control for dose reduction was used. FINDINGS: Heart is upper limits of normal in size with trace anterior basilar pericardial fluid. No significant coronary calcifications are seen. Normal caliber aortic root at 3.0 cm. Mild aneurysm ascending aorta 4.0 cm unchanged. Convention arch vessel branching anatomy. Minimal atherosclerotic calcification is seen. Ectatic upper descending thoracic aorta 3.1 cm. Ectatic mid descending thoracic aorta 2.9 cm unchanged. Ectatic aorta at the thoracoabdominal junction at 2.7 cm unchanged. Mildly enlarged caliber main right and left pulmonary arteries up to 2.8 cm suggests underlying pulmo nary arterial hypertension. No thoracic lymphadenopathy by CT size criteria. Strandy atelectasis at the bilateral lower lungs. No consolidation or pleural effusion. Multiple surgical clips at the left nephrectomy bed. Low density thickening left adrenal gland is unc hanged. Mild wording. Bones: Moderate to severe degenerative disc disease throughout the lower thoracic and upper lumbar sp ine. IMPRESSION: 1. Unchanged 4 cm ascending aortic aneurysm. 2. Possible underlying pulmonary arterial hypertension. [facility], , 03/17/2025 3:27 PM
== END | disposition home or self-care (01) ==
LOC: RADCTMAIN 11:41
PROVIDERS: ATTEND Family Medicine
DX: I71.21 Aneurysm of the ascending aorta, without rupture (principal)
CPT/HCPCS: 82565; 84520; 71275; 36415; Q9967